=== PATIENT | male | born 1940 | race Hispanic/Latino ===

== ENCOUNTER 2020-11-08 08:58 | Emergency (ER) | payer MEDICARE ==
[~2020-11-08] VITALS: Ht 170.2 cm; Wt 86.2 kg
[2020-11-08] MEDS ORDERED: CEFTRIAXONE 1 GM in SODIUM CHLORIDE 0.9% 50ML 50 ML IV SCH (09:15)
[2020-11-08] MEDS ORDERED: DEXAMETHASONE SOD PHOS 10 MG/1 ML VIAL IV SCH (09:15)
[2020-11-08] MEDS ORDERED: ZINC SULFATE 220 MG CAP PO SCH (09:15)
[2020-11-08 09:24] LABS: BASOPHILS % 0.4 % (0.0-1.0); EOSINOPHILS % 0.2 % (0.0-6.0); HEMATOCRIT 47.4 % (38.2-49.6); HEMOGLOBIN 15.2 g/dL (14.0-18.0); LYMPHOCYTES # (AUTO) 0.8 (1.0-3.2); LYMPHOCYTES % 9.7 % (18.0-39.1); MEAN CORPUSCULAR HEMOGLOBIN 28.5 pg (28-32); MEAN CORPUSCULAR HGB CONC 32.1 g/dL (31-35); MEAN CORPUSCULAR VOLUME 88.9 fL (81-99); MONOCYTES # (AUTO) 0.4 (0.2-0.8); MONOCYTES % 5.3 % (4.4-11.3); NEUTROPHILS # (AUTO) 6.8 (2.1-6.9); NEUTROPHILS % 84.2 % (38.7-80.0); PLATELET COUNT 173 x10e3/uL (140-360); RED BLOOD COUNT 5.33 x10e6/uL (4.3-5.7); RED CELL DISTRIBUTION WIDTH 14.3 % (11.7-14.4)
[2020-11-08 09:29] LABS: INR 1.08; PROTHROMBIN TIME 14.2 seconds (11.9-14.5)
[2020-11-08 09:30] LABS: PARTIAL THROMBOPLASTIN TIME 42.5 seconds (23.8-35.5)
[2020-11-08] MEDS ORDERED: ASPIRIN81 MG PO (09:33)
[2020-11-08] MEDS ORDERED: JANUMET 50-1,01 EACH (09:34)
[2020-11-08] MEDS ORDERED: BENAZEPRIL HCL10 MG PO (09:35)
[2020-11-08] MEDS ORDERED: PRAVASTATIN SOD40 MG (09:35)
[2020-11-08 09:39] LABS: ALBUMIN 2.9 g/dL (3.5-5.0); ALBUMIN/GLOBULIN RATIO 0.6 (0.8-2.0); ANION GAP 16.4 mmol/L (8-16); CALCIUM 8.9 mg/dL (8.4-10.2); CREATININE, SERUM 1.24 mg/dL (0.72-1.25); POTASSIUM 4.4 mmol/L (3.5-5.1)
[2020-11-08 09:46] LABS: CREATINE KINASE MB 0.8 ng/mL (0-5.0)
[2020-11-08] MEDS ORDERED: ASCORBIC ACID 500 MG TAB PO SCH (17:00)
== END 2020-11-08 12:42 | disposition home or self-care (01) ==
LOC: ER 09:06
DX: R50.9 Fever, unspecified (principal); R05 Cough; J96.91 Respiratory failure, unspecified with hypoxia; U07.1 COVID-19; J12.82 Pneumonia due to coronavirus disease 2019
CPT/HCPCS: 36415; 71045; 80053; 82550; 82553; 83735; 83880; 84484; 85025; 85610; 85730; 87040; 93005; 99284; U0002